=== PATIENT | female | born 1945 | race Hispanic/Latino ===

== ENCOUNTER 2021-06-01 18:00 | Emergency (ER) | payer OTHER ==
[~2021-06-01] VITALS: Ht 157.5 cm; Wt 83.9 kg
[~2021-06-01 18:00] MED LIST: AEC81 PO; LEVO25CA4 PO; METF-446 PO; OLME40TA18 PO; OXYB10TA30 PO; PANT20TA PO; PIOG15TA66 PO; SEMA1PEN3 SQ; VITAD50000 PO; VITAMIN B12 PO; VITAMIN D3 PO
[2021-06-01] MEDS ORDERED: HYDROCODONE/ACETAMINOPHEN 5/325 MG TAB PO ONE (19:00)
[2021-06-01 19:27] LABS: BASOPHILS % (AUTO) 0.3 % (0.0-5.0); EOSINOPHILS % (AUTO) 1.1 % (0.0-8.0); HEMATOCRIT 32.5 % (36-48); LYMPHOCYTES % (AUTO) 10.7 % (21.0-51.0); MEAN CORPUSCULAR HEMOGLOBIN 27.7 pg (27.0-33.0); MEAN CORPUSCULAR HGB CONC 31.4 g/dL (32.0-36.0); MEAN CORPUSCULAR VOLUME 88.3 fL (79-99); MONOCYTES % (AUTO) 7.6 % (3.0-13.0); NEUTROPHILS % (AUTO) 79.7 % (40.0-77.0); PLATELET COUNT (AUTO) 517 K/uL (130-400); RED BLOOD CELL COUNT(AUTO) 3.68 MIL/uL (4.00-5.50); RED CELL DISTRIBUTION WIDTH 14.2 % (11.0-15.5); WHITE BLOOD COUNT (AUTO) 11.8 K/uL (4.8-10.8)
[2021-06-01 19:32] LABS: CREATININE 1.1 mg/dL (0.5-1.5); POTASSIUM 4.6 mmol/L (3.5-5.1)
[2021-06-01 19:37] LABS: ALBUMIN 2.7 g/dL (3.5-5.0); BILIRUBIN,TOTAL 0.2 mg/dL (0.2-1.0); TOTAL PROTEIN, SERUM 7.1 g/dL (6.0-8.3)
[2021-06-01 20:06] VITALS: BP 121/78
== END 2021-06-01 20:36 | disposition home or self-care (01) ==
LOC: EDH 18:00
DX: M79.605 Pain in left leg (principal); E11.9 Type 2 diabetes mellitus without complications; D64.9 Anemia, unspecified; E03.9 Hypothyroidism, unspecified; E78.00 Pure hypercholesterolemia, unspecified; K21.9 Gastro-esophageal reflux disease without esophagitis; Z79.82 Long term (current) use of aspirin; Z79.84 Long term (current) use of oral hypoglycemic drugs; Z85.43 Personal history of malignant neoplasm of ovary; Z90.49 Acquired absence of other specified parts of digestive tract
CPT/HCPCS: 36415; 80053; 84484; 85025; 93971

== ENCOUNTER 2021-06-09 11:45 | Inpatient (IN) | payer OTHER ==
[~2021-06-09] VITALS: Ht 157.5 cm; Wt 78.8 kg
[2021-06-09 12:17] LABS: BASOPHILS % (AUTO) 0.4 % (0.0-5.0); EOSINOPHILS % (AUTO) 0.4 % (0.0-8.0); HEMATOCRIT 33.1 % (36-48); LYMPHOCYTES % (AUTO) 5.4 % (21.0-51.0); MEAN CORPUSCULAR HEMOGLOBIN 27.5 pg (27.0-33.0); MEAN CORPUSCULAR HGB CONC 31.1 g/dL (32.0-36.0); MEAN CORPUSCULAR VOLUME 88.3 fL (79-99); MONOCYTES % (AUTO) 6.2 % (3.0-13.0); NEUTROPHILS % (AUTO) 87.1 % (40.0-77.0); PLATELET COUNT (AUTO) 356 K/uL (130-400); RED BLOOD CELL COUNT(AUTO) 3.75 MIL/uL (4.00-5.50); RED CELL DISTRIBUTION WIDTH 14.6 % (11.0-15.5)
[2021-06-09 12:31] LABS: CREATININE 1.1 mg/dL (0.5-1.5); POTASSIUM 4.5 mmol/L (3.5-5.1)
[2021-06-09 12:36] LABS: ALBUMIN 2.4 g/dL (3.5-5.0); BILIRUBIN,TOTAL 0.3 mg/dL (0.2-1.0); TOTAL PROTEIN, SERUM 7.4 g/dL (6.0-8.3)
[2021-06-09 12:48] LABS: B-TYPE NATRIURETIC PEPTIDE 260 pg/mL (0-100)
[2021-06-09] MEDS ORDERED: ASPIRIN 325MG EC TAB PO ONE (14:00)
[2021-06-09] MEDS ORDERED: 0.9% NACL 500ML IV.SOLN 500 ML IV ONE ×2 (15:00→16:04)
[2021-06-09 15:53] LABS: APPEARANCE,URINE Cloudy (CLEAR); BILIRUBIN,URINE Negative (NEGATIVE); COLOR,URINE Dark Yellow (YELLOW); GLUCOSE, URINE (UA) Negative (NEGATIVE); KETONES,URINE Trace mg/dL (NEGATIVE); LEUKOCYTE ESTERASE ,URINE Moderate (NEGATIVE); NITRATE,URINE Negative (NEGATIVE); OCCULT BLOOD,URINE Negative (NEGATIVE); PH,URINE 5.5 (5.0-8.0); PROTEIN,URINE POS 1+ mg/dL (NEGATIVE)
[2021-06-09 16:03] LABS: BACTERIA,URINE Few /HPF (None Seen); MUCUS,URINE Few LPF (None Seen); SQUAMOUS EPITHELIAL CELL,UR 0-2 /HPF (0-2); YEAST,URINE BUDDING Many /HPF (None Seen)
[2021-06-09] MEDS ORDERED: ACETAMINOPHEN 325 MG TAB PO PRN (16:30)
[2021-06-09] MEDS ORDERED: MORPHINE 2 MG SYG IV PRN (16:30)
[2021-06-09] MEDS ORDERED: ONDANSETRON 4MG INJ IV PRN (16:30)
[2021-06-09 16:36] LABS: INR 1.1 (0.85-1.15); PROTHROMBIN TIME 11.9 SEC (9.6-11.6)
[2021-06-09 16:37] LABS: PARTIAL THROMBOPLASTIN TIME 33.3 SEC (26.3-35.5)
[2021-06-09] MEDS ORDERED: HEPARIN 5,000 UNIT VIAL ONE ×2 (17:13→17:15)
[2021-06-09] MEDS: HEPARIN 25,000 UNITS/250ML D5W 250 ML IV SCH (17:37)
[2021-06-09 19:34] VITALS: BP 143/71
[2021-06-09 21:13] LABS: HEMOGLOBIN A1C 6.3 % (4.0-6.0)
[2021-06-09] MEDS: FAMOTIDINE 20MG VIAL IV SCH (21:15)
[2021-06-09] MEDS: FLUCONAZOLE 100 MG TAB PO SCH (22:18)
[2021-06-09 23:19] LABS: INR 1.14 (0.85-1.15); PROTHROMBIN TIME 12.3 SEC (9.6-11.6)
[2021-06-09 23:51] VITALS: BP 115/68
[2021-06-10 03:46] VITALS: BP 120/63
[2021-06-10 03:55] LABS: BASOPHILS % (AUTO) 0.4 % (0.0-5.0); EOSINOPHILS % (AUTO) 0.3 % (0.0-8.0); HEMATOCRIT 27.8 % (36-48); LYMPHOCYTES % (AUTO) 11.2 % (21.0-51.0); MEAN CORPUSCULAR HEMOGLOBIN 27.4 pg (27.0-33.0); MEAN CORPUSCULAR HGB CONC 30.9 g/dL (32.0-36.0); MEAN CORPUSCULAR VOLUME 88.5 fL (79-99); MONOCYTES % (AUTO) 8.7 % (3.0-13.0); NEUTROPHILS % (AUTO) 78.3 % (40.0-77.0); PLATELET COUNT (AUTO) 326 K/uL (130-400); RED BLOOD CELL COUNT(AUTO) 3.14 MIL/uL (4.00-5.50); RED CELL DISTRIBUTION WIDTH 14.5 % (11.0-15.5); WHITE BLOOD COUNT (AUTO) 14.2 K/uL (4.8-10.8)
[2021-06-10 04:15] LABS: ALBUMIN 2.1 g/dL (3.5-5.0); BILIRUBIN,TOTAL 0.2 mg/dL (0.2-1.0); CREATININE 1.1 mg/dL (0.5-1.5); POTASSIUM 4.4 mmol/L (3.5-5.1); TOTAL PROTEIN, SERUM 6.3 g/dL (6.0-8.3)
[2021-06-10 06:03] LABS: ERYTHROCYTE SEDIMENTATION RATE 74 MM/HR (0-30)
[2021-06-10] MEDS: INSULIN HUMULIN R 100 UNIT/ML 3ML SQ SCH ×4 (06:34→20:38)
[2021-06-10 07:30] VITALS: BP 133/67
[2021-06-10] MEDS: FAMOTIDINE 20MG VIAL IV SCH (09:01)
[2021-06-10] MEDS: ASPIRIN 81MG CHEW TAB PO SCH (09:01)
[2021-06-10] MEDS: FLUCONAZOLE 100 MG TAB PO SCH (09:01)
[2021-06-10 11:00] VITALS: BP 134/62
[2021-06-10 11:37] LABS: HEMATOCRIT 27.9 % (36-48)
[2021-06-10] MEDS: HEPARIN 25,000 UNITS/250ML D5W 250 ML IV SCH (13:41)
[2021-06-10 16:00] VITALS: BP 140/64
[2021-06-10 19:27] VITALS: BP 146/70
[2021-06-10] MEDS: ACETAMINOPHEN 325 MG TAB PO PRN (22:11)
[2021-06-10 23:39] VITALS: BP 136/61
[2021-06-11 03:14] VITALS: BP 137/67
[2021-06-11] MEDS: INSULIN HUMULIN R 100 UNIT/ML 3ML SQ SCH ×4 (07:07→21:00)
[2021-06-11 07:18] LABS: BASOPHILS % (AUTO) 0.3 % (0.0-5.0); EOSINOPHILS % (AUTO) 1.4 % (0.0-8.0); HEMATOCRIT 27.3 % (36-48); LYMPHOCYTES % (AUTO) 9.8 % (21.0-51.0); MEAN CORPUSCULAR HEMOGLOBIN 27.8 pg (27.0-33.0); MEAN CORPUSCULAR HGB CONC 31.5 g/dL (32.0-36.0); MEAN CORPUSCULAR VOLUME 88.3 fL (79-99); MONOCYTES % (AUTO) 9.8 % (3.0-13.0); NEUTROPHILS % (AUTO) 78.2 % (40.0-77.0); PLATELET COUNT (AUTO) 349 K/uL (130-400); RED BLOOD CELL COUNT(AUTO) 3.09 MIL/uL (4.00-5.50); RED CELL DISTRIBUTION WIDTH 14.6 % (11.0-15.5)
[2021-06-11 07:29] LABS: CREATININE 1.2 mg/dL (0.5-1.5); POTASSIUM 4.2 mmol/L (3.5-5.1)
[2021-06-11 08:00] VITALS: BP 137/75
[2021-06-11] MEDS: ASPIRIN 81MG CHEW TAB PO SCH (08:04)
[2021-06-11] MEDS: FLUCONAZOLE 100 MG TAB PO SCH (08:05)
[2021-06-11] MEDS: FAMOTIDINE 20MG VIAL IV SCH (08:39)
[2021-06-11 12:00] VITALS: BP 134/72
[2021-06-11] MEDS ORDERED: HEPARIN 5,000 UNIT VIAL IV SCH (13:30)
[2021-06-11] MEDS: HEPARIN 25,000 UNITS/250ML D5W 250 ML IV SCH (13:45)
[2021-06-11 16:00] VITALS: BP 131/68
[2021-06-11] MEDS: DOCUSATE SODIUM 100 MG CAP PO SCH (16:42)
[2021-06-11 19:09] VITALS: BP 130/69
[2021-06-11] MEDS: ACETAMINOPHEN 325 MG TAB PO PRN (20:08)
[2021-06-12 00:03] VITALS: BP 137/68
[2021-06-12 03:03] VITALS: BP 121/68
[2021-06-12 03:54] LABS: BASOPHILS % (AUTO) 0.6 % (0.0-5.0); EOSINOPHILS % (AUTO) 1.5 % (0.0-8.0); HEMATOCRIT 24.7 % (36-48); LYMPHOCYTES % (AUTO) 12.7 % (21.0-51.0); MEAN CORPUSCULAR HEMOGLOBIN 27.8 pg (27.0-33.0); MONOCYTES % (AUTO) 10.5 % (3.0-13.0); PLATELET COUNT (AUTO) 364 K/uL (130-400); RED BLOOD CELL COUNT(AUTO) 2.84 MIL/uL (4.00-5.50); RED CELL DISTRIBUTION WIDTH 14.6 % (11.0-15.5); WHITE BLOOD COUNT (AUTO) 12.2 K/uL (4.8-10.8)
[2021-06-12 04:08] LABS: POTASSIUM 4.1 mmol/L (3.5-5.1)
[2021-06-12] MEDS: INSULIN HUMULIN R 100 UNIT/ML 3ML SQ SCH ×4 (07:30→20:38)
[2021-06-12 08:00] VITALS: BP 136/70
[2021-06-12] MEDS: FAMOTIDINE 20MG VIAL IV SCH (09:00)
[2021-06-12] MEDS: ASPIRIN 81MG CHEW TAB PO SCH (09:00)
[2021-06-12] MEDS: FLUCONAZOLE 100 MG TAB PO SCH (09:01)
[2021-06-12] MEDS: LEVOTHYROXINE 25 MCG TABLET PO SCH (09:02)
[2021-06-12] MEDS: HEPARIN 25,000 UNITS/250ML D5W 250 ML IV SCH (10:50)
[2021-06-12 11:37] VITALS: BP 135/89
[2021-06-12] MEDS: ACETAMINOPHEN 325 MG TAB PO PRN (14:44)
[2021-06-12] MEDS: DOCUSATE SODIUM 100 MG CAP PO SCH (15:30)
[2021-06-12 15:39] VITALS: BP 131/67
[2021-06-12 19:03] VITALS: BP 140/68
[2021-06-13] VITALS (7 sets, daily range): BP systolic 108–157; BP diastolic 59–98
[2021-06-13 04:22] LABS: BASOPHILS % (AUTO) 0.3 % (0.0-5.0); EOSINOPHILS % (AUTO) 1.8 % (0.0-8.0); HEMATOCRIT 25.7 % (36-48); LYMPHOCYTES % (AUTO) 12.6 % (21.0-51.0); MEAN CORPUSCULAR HEMOGLOBIN 26.8 pg (27.0-33.0); MEAN CORPUSCULAR HGB CONC 30.7 g/dL (32.0-36.0); MEAN CORPUSCULAR VOLUME 87.1 fL (79-99); MONOCYTES % (AUTO) 9.1 % (3.0-13.0); NEUTROPHILS % (AUTO) 75.4 % (40.0-77.0); PLATELET COUNT (AUTO) 394 K/uL (130-400); RED BLOOD CELL COUNT(AUTO) 2.95 MIL/uL (4.00-5.50); RED CELL DISTRIBUTION WIDTH 14.6 % (11.0-15.5)
[2021-06-13 04:36] LABS: POTASSIUM 4.1 mmol/L (3.5-5.1)
[2021-06-13] MEDS: INSULIN HUMULIN R 100 UNIT/ML 3ML SQ SCH ×4 (06:38→21:00)
[2021-06-13] MEDS: LEVOTHYROXINE 25 MCG TABLET PO SCH (06:48)
[2021-06-13] MEDS: ASPIRIN 81MG CHEW TAB PO SCH (08:07)
[2021-06-13] MEDS: FLUCONAZOLE 100 MG TAB PO SCH (08:07)
[2021-06-13] MEDS: FAMOTIDINE 20MG VIAL IV SCH (08:08)
[2021-06-13] MEDS: DOCUSATE SODIUM 100 MG CAP PO SCH (12:32)
[2021-06-13] MEDS: HEPARIN 25,000 UNITS/250ML D5W 250 ML IV SCH (12:42)
[2021-06-14] VITALS (10 sets, daily range): BP systolic 115–148; BP diastolic 58–76
[2021-06-14 04:08] LABS: BASOPHILS % (AUTO) 0.4 % (0.0-5.0); EOSINOPHILS % (AUTO) 1.8 % (0.0-8.0); HEMATOCRIT 25.2 % (36-48); LYMPHOCYTES % (AUTO) 14.5 % (21.0-51.0); MEAN CORPUSCULAR HEMOGLOBIN 27.9 pg (27.0-33.0); MEAN CORPUSCULAR HGB CONC 31.3 g/dL (32.0-36.0); MONOCYTES % (AUTO) 10.6 % (3.0-13.0); NEUTROPHILS % (AUTO) 71.7 % (40.0-77.0); PLATELET COUNT (AUTO) 409 K/uL (130-400); RED BLOOD CELL COUNT(AUTO) 2.83 MIL/uL (4.00-5.50); RED CELL DISTRIBUTION WIDTH 14.6 % (11.0-15.5); WHITE BLOOD COUNT (AUTO) 11.3 K/uL (4.8-10.8)
[2021-06-14 04:31] LABS: BILIRUBIN,TOTAL 0.3 mg/dL (0.2-1.0); CREATININE 1.1 mg/dL (0.5-1.5); POTASSIUM 3.8 mmol/L (3.5-5.1); TOTAL PROTEIN, SERUM 6.3 g/dL (6.0-8.3)
[2021-06-14] MEDS: INSULIN HUMULIN R 100 UNIT/ML 3ML SQ SCH ×4 (06:22→21:00)
[2021-06-14] MEDS: FAMOTIDINE 20MG VIAL IV SCH (09:04)
[2021-06-14] MEDS: ASPIRIN 81MG CHEW TAB PO SCH (09:04)
[2021-06-14] MEDS: LEVOTHYROXINE 25 MCG TABLET PO SCH (09:04)
[2021-06-14 13:57] LABS: SPECIMENTYPE,BODY FLUID ASCITES
[2021-06-14 13:59] LABS: APPEARANCE BODY FLUID SLIGHTLY CLOUDY (CLEAR); BODY FLUID WBC 261 /cu. mm.; COLOR,BODY FLUID YELLOW (LT YELLOW); TOTAL VOLUME,BODY FLUID 4500 mL
[2021-06-14 14:00] LABS: BODY FLUID RBC 1100 /cu. mm.
[2021-06-14 14:18] LABS: BF LYMPHOCYTE 27 %; BF MONOCYTE 22 %
[2021-06-14] MEDS: ACETAMINOPHEN 325 MG TAB PO PRN (14:30)
[2021-06-14] MEDS: DOCUSATE SODIUM 100 MG CAP PO SCH (16:50)
[2021-06-14] MEDS: LUBIPROSTONE 24 MCG CAP PO SCH (16:50)
[2021-06-14 18:51] LABS: INR 1.08 (0.85-1.15); PROTHROMBIN TIME 11.7 SEC (9.6-11.6)
[2021-06-14] MEDS: APIXABAN 5 MG TABLET PO SCH (21:12)
[2021-06-15 03:47] LABS: BASOPHILS % (AUTO) 0.2 % (0.0-5.0); EOSINOPHILS % (AUTO) 0.6 % (0.0-8.0); HEMATOCRIT 24.5 % (36-48); LYMPHOCYTES % (AUTO) 8.9 % (21.0-51.0); MEAN CORPUSCULAR HEMOGLOBIN 27.9 pg (27.0-33.0); MEAN CORPUSCULAR HGB CONC 31.8 g/dL (32.0-36.0); MEAN CORPUSCULAR VOLUME 87.5 fL (79-99); MONOCYTES % (AUTO) 9.1 % (3.0-13.0); NEUTROPHILS % (AUTO) 80.8 % (40.0-77.0); PLATELET COUNT (AUTO) 413 K/uL (130-400); RED CELL DISTRIBUTION WIDTH 14.5 % (11.0-15.5); WHITE BLOOD COUNT (AUTO) 12.1 K/uL (4.8-10.8)
[2021-06-15 03:52] VITALS: BP 122/67
[2021-06-15] MEDS: ACETAMINOPHEN 325 MG TAB PO PRN ×2 (04:02→08:54)
[2021-06-15 04:17] LABS: ALBUMIN 1.7 g/dL (3.5-5.0); BILIRUBIN,TOTAL 0.2 mg/dL (0.2-1.0); CREATININE 0.8 mg/dL (0.5-1.5); MAGNESIUM 1.9 mg/dL (1.80-2.40); PHOSPHORUS 3.2 mg/dL (2.5-4.9); POTASSIUM 4.1 mmol/L (3.5-5.1); TOTAL PROTEIN, SERUM 5.7 g/dL (6.0-8.3)
[2021-06-15] MEDS: INSULIN HUMULIN R 100 UNIT/ML 3ML SQ SCH ×2 (06:35→11:30)
[2021-06-15 07:45] VITALS: BP 111/62
[2021-06-15] MEDS: LUBIPROSTONE 24 MCG CAP PO SCH (08:52)
[2021-06-15] MEDS: FAMOTIDINE 20MG VIAL IV SCH (08:52)
[2021-06-15] MEDS: APIXABAN 5 MG TABLET PO SCH (08:53)
[2021-06-15] MEDS: ASPIRIN 81MG CHEW TAB PO SCH (08:53)
[2021-06-15] MEDS: LEVOTHYROXINE 25 MCG TABLET PO SCH (08:53)
[2021-06-15] MEDS ORDERED: APIX5TAB PO ×2 (09:25→12:28)
[2021-06-15 11:45] VITALS: BP 138/64
== END 2021-06-15 16:19 | disposition home or self-care (01) | DRG 175 ==
LOC: EDH 11:45 → EDHIP 16:10 → 2DH 18:35
PROVIDERS: ADMIT Internal Medicine; ATTEND Internal Medicine
PROC: 0W9G3ZZ Drainage of Peritoneal Cavity, Percutaneous Approach (ICD-10-PCS; principal; 2021-06-14)
DX: I26.99 Other pulmonary embolism without acute cor pulmonale (principal); J96.01 Acute respiratory failure with hypoxia; N39.0 Urinary tract infection, site not specified; J90 Pleural effusion, not elsewhere classified; N17.9 Acute kidney failure, unspecified; R18.0 Malignant ascites; C56.9 Malignant neoplasm of unspecified ovary; D68.59 Other primary thrombophilia; C78.6 Secondary malignant neoplasm of retroperitoneum and peritoneum; I31.3 Pericardial effusion (noninflammatory); I24.8 Other forms of acute ischemic heart disease; Z90.49 Acquired absence of other specified parts of digestive tract; Z90.710 Acquired absence of both cervix and uterus; J44.9 Chronic obstructive pulmonary disease, unspecified; E03.9 Hypothyroidism, unspecified; E11.65 Type 2 diabetes mellitus with hyperglycemia; I25.10 Atherosclerotic heart disease of native coronary artery without angina pectoris; I10 Essential (primary) hypertension; D64.9 Anemia, unspecified; I27.24 Chronic thromboembolic pulmonary hypertension; E78.00 Pure hypercholesterolemia, unspecified; Z80.3 Family history of malignant neoplasm of breast; K21.9 Gastro-esophageal reflux disease without esophagitis
CPT/HCPCS: 36415; 49083; 71045; 71275; 76700; 80048; 80053; 81001; 82270; 82948; 83036; 83735; 83880; 84100; 84484; 85014; 85018; 85025; 85378; 85610; 85651; 85730; 86850; 86900; 86901; 87071; 87088; 87205; 89051; 93005; 93306; 93970; 94760; C1729; G0378; J1644; J1815; J2405; J3490; J7040